=== PATIENT | female | born 1960 | race Caucasian/White ===

== ENCOUNTER 2019-01-22 20:21 | Inpatient (IN) ==
[2019-01-22] MEDS ORDERED: SODIUM CHLORIDE 0.9% 1,000 ML IV STA (20:47)
[2019-01-22] MEDS ORDERED: PANTOPRAZOLE 40 MG VIAL IV STA (20:47)
[2019-01-22] MEDS ORDERED: ONDANSETRON 4 MG/2 ML VIAL IV STA (20:47)
[2019-01-22 21:22] LABS: Basophils % 0.2 % (0.0-0.8); Eosinophils % 0.1 % (0.00-10.9); Hemoglobin 14.4 GM/DL (12.0-16.0); Immature Granulocytes % 0.8 %; Lymphocytes # 1.1 10*3/uL (1.4-4.0); Lymphocytes % 8.7 % (21.3-54.2); Mean Corpuscular HGB Conc 31.3 GM/DL (32-36); Mean Corpuscular Volume 86.6 FL (87-102); Mean Platelet Volume 11.2 FL (9.6-12.0); Monocytes % 9.4 % (1.7-12.7); Neutrophils % 80.8 % (38.7-73.9); Platelet Count 277 T/CUMM (130-400); Red Blood Count 5.31 MC/CUMM (3.8-5.5); Red Cell Distribution Width 16.8 % (9.3-17.3); White Blood Count 12.3 T/CUMM (4-12)
[2019-01-22 21:37] LABS: Albumin 3.8 G/DL (3.4-5.0); Bilirubin,Total 0.9 MG/DL (0.2-1.0); Calcium 9.8 MG/DL (8.5-10.1); Osmolality,Calculated 288.4 MOS/KG (273-304); Total Protein 7.2 G/DL (6.4-8.3)
[2019-01-22] MEDS ORDERED: PROMETHAZINE INJ 12.5 MG in SODIUM CHLORIDE 0.9% 50 ML IV STA (22:23)
[2019-01-22] MEDS ORDERED: PROMETHAZINE 25 MG/1 ML VIAL ONE (22:44)
[2019-01-22] MEDS ORDERED: MORPHINE 4 MG/1 ML VIAL IV STA (22:57)
[2019-01-22] MEDS ORDERED: PIPERACILLIN/TAZOBACTAM 3.375 MG in SODIUM CHLORIDE 0.9% 100 ML IV STA (22:57)
[2019-01-22] MEDS ORDERED: PIPERACILLIN/TAZOBACTAM 3,375 MG in SODIUM CHLORIDE 0.9% 100 ML IV STA (22:58)
[2019-01-22] MEDS ORDERED: PROMETHAZINE 25 MG/1 ML VIAL IM PRN (23:08)
[2019-01-22] MEDS ORDERED: MORPHINE 4 MG/1 ML VIAL IV PRN (23:08)
[2019-01-22] MEDS ORDERED: ONDANSETRON 4 MG/2 ML VIAL IV PRN (23:08)
[2019-01-22 23:26] LABS: Apearance,Urine CLEAR (Clear); Bilirubin,Urine Negative (Negative); Blood, Urine Negative (Negative); Glucose,Urine (UA) 50 mg/dL (Negative); Hyaline Casts,Urine 12 /LPF (0-3); Ketones,Urine 80 mg/dL (Negative); Mucus,Urine Occasional /LPF (Occasional); Nitrite,Urine Negative (Negative); Protein,Urine Negative; RBC,Urine 1 /HPF (0-4); Squamous Epithelial Cell,Urine Occasional /HPF (0-10); Urine Color Yellow (Yellow); Urine Specific Gravity 1.035 (1.001-1.035); Urine Urobilinogen < 2.0 EU/DL (0.2-1.0); WBC,Urine <1 /HPF (0-6)
[2019-01-23 00:57] LABS: Basophils % 0.2 % (0.0-0.8); Hematocrit 36.8 VOL% (35.7-47.0); Immature Granulocytes % 1.5 %; Immature Granulocytes Absolute 0.15 #; Lymphocytes # 0.5 10*3/uL (1.4-4.0); Lymphocytes % 5.4 % (21.3-54.2); Mean Corpuscular HGB Conc 32.6 GM/DL (32-36); Mean Platelet Volume 11.2 FL (9.6-12.0); Monocytes % 8.7 % (1.7-12.7); Neutrophils % 84.2 % (38.7-73.9); Platelet Count 202 T/CUMM (130-400); Red Blood Count 4.33 MC/CUMM (3.8-5.5); Red Cell Distribution Width 16.4 % (9.3-17.3)
[2019-01-23 01:10] LABS: Bilirubin,Total 0.8 MG/DL (0.2-1.0); Calcium 8.1 MG/DL (8.5-10.1); Osmolality,Calculated 288.1 MOS/KG (273-304); Total Protein 5.8 G/DL (6.4-8.3)
[2019-01-23] MEDS: DEXTROSE 5% NACL 0.45% 1,000 ML IV SCH ×3 (01:13→15:12)
[2019-01-23 01:20] LABS: Anisocytosis 1+; Band Neutrophils 5 % (0-10); Lymphocytes 15 % (20-55); Segmented Neutrophils 78 % (50-85); Total Cells Counted 100
[2019-01-23 01:21] LABS: Platelet Estimate Adequate
[2019-01-23] MEDS ORDERED: DOCUSATE SODIUM 100 MG CAPSULE PO SCH (09:00)
[2019-01-23] MEDS: PIPERACILLIN/TAZOBACTAM 3,375 MG in SODIUM CHLORIDE 0.9% 100 ML IV SCH ×2 (09:34→16:32)
[2019-01-23] MEDS: PANTOPRAZOLE 40 MG VIAL IV SCH (09:36)
[2019-01-24] MEDS: PIPERACILLIN/TAZOBACTAM 3,375 MG in SODIUM CHLORIDE 0.9% 100 ML IV SCH ×3 (00:46→17:51)
[2019-01-24] MEDS: DEXTROSE 5% NACL 0.45% 1,000 ML IV SCH ×2 (00:47→17:51)
[2019-01-24] MEDS: PANTOPRAZOLE 40 MG VIAL IV SCH (08:30)
[2019-01-25] MEDS: PIPERACILLIN/TAZOBACTAM 3,375 MG in SODIUM CHLORIDE 0.9% 100 ML IV SCH ×3 (03:54→17:28)
[2019-01-25] MEDS: DEXTROSE 5% NACL 0.45% 1,000 ML IV SCH ×6 (03:55→23:33)
[2019-01-25 04:52] LABS: Basophils % 0.6 % (0.0-0.8); Eosinophils % 0.8 % (0.00-10.9); Hematocrit 33.6 VOL% (35.7-47.0); Hemoglobin 10.6 GM/DL (12.0-16.0); Immature Granulocytes % 0.2 %; Immature Granulocytes Absolute 0.01 #; Lymphocytes # 1.6 10*3/uL (1.4-4.0); Lymphocytes % 30.6 % (21.3-54.2); Mean Corpuscular HGB Conc 31.5 GM/DL (32-36); Mean Corpuscular Volume 87.5 FL (87-102); Mean Platelet Volume 10.4 FL (9.6-12.0); Monocytes % 13.8 % (1.7-12.7); Platelet Count 188 T/CUMM (130-400); Red Blood Count 3.84 MC/CUMM (3.8-5.5); Red Cell Distribution Width 16.5 % (9.3-17.3); White Blood Count 5.2 T/CUMM (4-12)
[2019-01-25 05:20] LABS: Albumin 2.5 G/DL (3.4-5.0); Bilirubin,Total 0.6 MG/DL (0.2-1.0); Calcium 8.5 MG/DL (8.5-10.1); Osmolality,Calculated 293.3 MOS/KG (273-304); Total Protein 4.9 G/DL (6.4-8.3)
[2019-01-25] MEDS: PANTOPRAZOLE 40 MG VIAL IV SCH (09:19)
[2019-01-25] MEDS ORDERED: PHENYLEPHRINE DRIP 20 MG/250 ML PREMIX IV ONE (10:30)
[2019-01-25] MEDS ORDERED: HEPARIN/NACL 0.9% 2 UNITS/ML 500 ML IV ONE (10:30)
[2019-01-25] MEDS ORDERED: OCTREOTIDE 500 MCG/ML VIAL SUBCUT ONE (11:00)
[2019-01-25] MEDS ORDERED: OCTREOTIDE 500 MCG/ML VIAL IV ONE (11:00)
[2019-01-25] MEDS ORDERED: BUPIVACAINE 0.5% 50 ML VIAL ONE (11:43)
[2019-01-25] MEDS ORDERED: EPINEPHrine 1 MG/ML VIAL ONE (11:43)
[2019-01-25] MEDS ORDERED: DEXAMETHASONE 4 MG/1 ML VIAL ONE (11:43)
[2019-01-25] MEDS ORDERED: LIDOCAINE 1% 5 ML VIAL ONE (11:44)
[2019-01-25] MEDS ORDERED: SODIUM CHLORIDE 0.9% 1,000 ML IV PRN ×2 (13:54→14:54)
[2019-01-25] MEDS ORDERED: ALBUMIN 5% 12.5 GM/250 ML VIAL IV ONE (14:06)
[2019-01-25] MEDS ORDERED: SUGAMMADEX 200 MG/2 ML VIAL IV ONE (14:28)
[2019-01-25] MEDS ORDERED: ONDANSETRON 4 MG/2 ML VIAL IV PRN ×2 (14:39→15:14)
[2019-01-25 14:58] LABS: Apearance,Urine CLEAR (Clear); Bilirubin,Urine Negative (Negative); Blood, Urine Negative (Negative); Glucose,Urine (UA) >=500 mg/dL (Negative); Ketones,Urine 5 mg/dL (Negative); Nitrite,Urine Negative (Negative); Protein,Urine Negative; RBC,Urine 1 /HPF (0-4); Urine Color Colorless (Yellow); Urine Specific Gravity 1.003 (1.001-1.035); Urine Urobilinogen < 2.0 EU/DL (0.2-1.0); WBC,Urine <1 /HPF (0-6)
[2019-01-25] MEDS ORDERED: PROPOFOL 200 MG/20 ML VIAL IV ONE (15:00)
[2019-01-25] MEDS ORDERED: ONDANSETRON 4 MG/2 ML VIAL ONE (15:01)
[2019-01-25] MEDS ORDERED: DESFLURANE 1 UNIT/15 MINUTE INH ONE (15:01)
[2019-01-25] MEDS ORDERED: MIDAZOLAM 2 MG/2 ML VIAL ONE (15:01)
[2019-01-25] MEDS ORDERED: fentaNYL 100 MCG/2 ML VIAL ONE (15:01)
[2019-01-25] MEDS ORDERED: PHENYLEPHRINE 1 MG/10 ML SYRINGE IV ONE (15:02)
[2019-01-25] MEDS ORDERED: LACTATED RINGERS 1,000 ML IV ONE (15:02)
[2019-01-25] MEDS ORDERED: ROCURONIUM 100 MG/10 ML VIAL IV ONE (15:02)
[2019-01-25] MEDS ORDERED: SUCCINYLCHOLINE 200 MG/10 ML VIAL ONE (15:02)
[2019-01-25] MEDS: HYDROmorphone 2 MG/1 ML VIAL IV PRN ×3 (15:08→17:28)
[2019-01-25] MEDS ORDERED: HYDROmorphone 2 MG/1 ML VIAL ONE (15:09)
[2019-01-25 17:27] LABS: Hematocrit 28.6 VOL% (35.7-47.0)
[2019-01-25] MEDS ORDERED: SODIUM CHLORIDE 0.9% 1,000 ML IV ONE (18:45)
[2019-01-25] MEDS ORDERED: OCTREOTIDE 100 MCG/ML SYRINGE IV ONE (18:46)
[2019-01-25] MEDS: OCTREOTIDE 500 MCG in SODIUM CHLORIDE 0.9% 100 ML IV SCH ×2 (20:33→23:29)
[2019-01-26] MEDS: OCTREOTIDE 500 MCG in SODIUM CHLORIDE 0.9% 100 ML IV SCH ×7 (01:35→17:28)
[2019-01-26] MEDS: PIPERACILLIN/TAZOBACTAM 3,375 MG in SODIUM CHLORIDE 0.9% 100 ML IV SCH ×3 (01:35→16:53)
[2019-01-26] MEDS: HYDROmorphone 2 MG/1 ML VIAL IV PRN ×6 (03:54→20:14)
[2019-01-26 04:54] LABS: Basophils % 0.2 % (0.0-0.8); Hematocrit 23.6 VOL% (35.7-47.0); Immature Granulocytes Absolute 0.13 #; Lymphocytes # 0.9 10*3/uL (1.4-4.0); Lymphocytes % 7.1 % (21.3-54.2); Mean Corpuscular HGB Conc 31.4 GM/DL (32-36); Mean Corpuscular Volume 88.1 FL (87-102); Mean Platelet Volume 10.4 FL (9.6-12.0); Monocytes % 10.7 % (1.7-12.7); Red Cell Distribution Width 17.3 % (9.3-17.3)
[2019-01-26 04:56] LABS: Hemoglobin 7.4 GM/DL (12.0-16.0); Platelet Count 138 T/CUMM (130-400); Red Blood Count 2.68 MC/CUMM (3.8-5.5); White Blood Count 12.6 T/CUMM (4-12)
[2019-01-26 05:07] LABS: Albumin 2.5 G/DL (3.4-5.0); Band Neutrophils 8 % (0-10); Bilirubin,Total 0.5 MG/DL (0.2-1.0); Calcium 7.1 MG/DL (8.5-10.1); Hypochromasia 1+; Lymphocytes 6 % (20-55); Osmolality,Calculated 291.7 MOS/KG (273-304); Ovalocytes Slight; Segmented Neutrophils 78 % (50-85); Total Cells Counted 100; Total Protein 4.1 G/DL (6.4-8.3)
[2019-01-26 05:08] LABS: Platelet Estimate Normal
[2019-01-26] MEDS ORDERED: SODIUM CHLORIDE 0.9% 1,000 ML IV PRN (07:08)
[2019-01-26] MEDS: SODIUM CHLORIDE 0.9% 1,000 ML IV SCH ×2 (08:19→16:20)
[2019-01-26] MEDS: DEXTROSE 5% NACL 0.45% 1,000 ML IV SCH (08:48)
[2019-01-26] MEDS: PANTOPRAZOLE 40 MG VIAL IV SCH (09:01)
[2019-01-26 14:23] LABS: Hematocrit 32.3 VOL% (35.7-47.0)
[2019-01-26 14:24] LABS: Hemoglobin 10.6 GM/DL (12.0-16.0)
[2019-01-27] MEDS: HYDROmorphone 2 MG/1 ML VIAL IV PRN ×2 (02:50→08:48)
[2019-01-27] MEDS: SODIUM CHLORIDE 0.9% 1,000 ML IV SCH ×3 (02:53→18:56)
[2019-01-27] MEDS: PIPERACILLIN/TAZOBACTAM 3,375 MG in SODIUM CHLORIDE 0.9% 100 ML IV SCH ×3 (03:45→20:50)
[2019-01-27 08:04] LABS: Basophils % 0.1 % (0.0-0.8); Hematocrit 31.6 VOL% (35.7-47.0); Hemoglobin 10.5 GM/DL (12.0-16.0); Immature Granulocytes % 0.5 %; Immature Granulocytes Absolute 0.07 #; Lymphocytes % 7.2 % (21.3-54.2); Mean Corpuscular HGB Conc 33.2 GM/DL (32-36); Mean Corpuscular Volume 86.6 FL (87-102); Mean Platelet Volume 10.9 FL (9.6-12.0); Monocytes % 9.6 % (1.7-12.7); Neutrophils % 82.6 % (38.7-73.9); Platelet Count 102 T/CUMM (130-400); Red Blood Count 3.65 MC/CUMM (3.8-5.5); Red Cell Distribution Width 16.9 % (9.3-17.3); White Blood Count 13.3 T/CUMM (4-12)
[2019-01-27] MEDS: PANTOPRAZOLE 40 MG VIAL IV SCH (08:43)
[2019-01-28] MEDS: SODIUM CHLORIDE 0.9% 1,000 ML IV SCH ×5 (01:40→20:19)
[2019-01-28] MEDS: PIPERACILLIN/TAZOBACTAM 3,375 MG in SODIUM CHLORIDE 0.9% 100 ML IV SCH ×3 (04:15→20:20)
[2019-01-28 06:48] LABS: Basophils % 0.3 % (0.0-0.8); Hematocrit 30.6 VOL% (35.7-47.0); Hemoglobin 9.9 GM/DL (12.0-16.0); Immature Granulocytes % 1.5 %; Immature Granulocytes Absolute 0.21 #; Lymphocytes # 0.9 10*3/uL (1.4-4.0); Lymphocytes % 6.2 % (21.3-54.2); Mean Corpuscular HGB Conc 32.4 GM/DL (32-36); Mean Corpuscular Volume 86.9 FL (87-102); Mean Platelet Volume 10.3 FL (9.6-12.0); Monocytes % 10.5 % (1.7-12.7); Neutrophils % 81.5 % (38.7-73.9); Platelet Count 125 T/CUMM (130-400); Red Blood Count 3.52 MC/CUMM (3.8-5.5); Red Cell Distribution Width 16.8 % (9.3-17.3); White Blood Count 14.4 T/CUMM (4-12)
[2019-01-28 07:19] LABS: Albumin 2.3 G/DL (3.4-5.0); Calcium 8.1 MG/DL (8.5-10.1); Osmolality,Calculated 278.1 MOS/KG (273-304); Total Protein 4.8 G/DL (6.4-8.3)
[2019-01-28] MEDS: PANTOPRAZOLE 40 MG VIAL IV SCH (09:30)
[2019-01-28] MEDS: POTASSIUM CHLORIDE RIDER 10 MEQ in PREMIX 1 EACH IV PRN ×5 (09:36→18:16)
[2019-01-29] MEDS: POTASSIUM CHLORIDE RIDER 10 MEQ in PREMIX 1 EACH IV PRN (00:39)
[2019-01-29] MEDS: SODIUM CHLORIDE 0.9% 1,000 ML IV SCH ×3 (04:02→18:03)
[2019-01-29] MEDS: PIPERACILLIN/TAZOBACTAM 3,375 MG in SODIUM CHLORIDE 0.9% 100 ML IV SCH ×3 (04:33→20:03)
[2019-01-29 05:33] LABS: Basophils % 0.2 % (0.0-0.8); Eosinophils # 0.1 10*3/uL (0.0-0.87); Eosinophils % 0.5 % (0.00-10.9); Hematocrit 28.4 VOL% (35.7-47.0); Hemoglobin 9.5 GM/DL (12.0-16.0); Immature Granulocytes % 1.6 %; Immature Granulocytes Absolute 0.17 #; Lymphocytes # 0.9 10*3/uL (1.4-4.0); Lymphocytes % 8.4 % (21.3-54.2); Mean Corpuscular HGB Conc 33.5 GM/DL (32-36); Mean Corpuscular Volume 86.1 FL (87-102); Mean Platelet Volume 11.3 FL (9.6-12.0); Monocytes % 11.3 % (1.7-12.7); Platelet Count 151 T/CUMM (130-400); Red Cell Distribution Width 16.8 % (9.3-17.3); White Blood Count 10.3 T/CUMM (4-12)
[2019-01-29 06:05] LABS: Albumin 2.2 G/DL (3.4-5.0); Bilirubin,Total 1.3 MG/DL (0.2-1.0); Calcium 7.9 MG/DL (8.5-10.1); Osmolality,Calculated 281.8 MOS/KG (273-304); Total Protein 4.9 G/DL (6.4-8.3)
[2019-01-29] MEDS: PANTOPRAZOLE 40 MG VIAL IV SCH (09:58)
[2019-01-29] MEDS: ACETAMINOPHEN 325 MG TABLET PO PRN (16:30)
[2019-01-30] MEDS: PIPERACILLIN/TAZOBACTAM 3,375 MG in SODIUM CHLORIDE 0.9% 100 ML IV SCH ×3 (04:01→21:35)
[2019-01-30] MEDS: SODIUM CHLORIDE 0.9% 1,000 ML IV SCH ×3 (04:02→21:05)
[2019-01-30] MEDS: PANTOPRAZOLE 40 MG VIAL IV SCH (09:53)
[2019-01-30] MEDS: ACETAMINOPHEN 325 MG TABLET PO PRN (12:49)
[2019-01-30 17:04] LABS: Apearance,Urine CLEAR (Clear); Bacteria,Urine Occasional /HPF (Few); Bilirubin,Urine Negative (Negative); Blood, Urine Negative (Negative); Glucose,Urine (UA) Negative (Negative); Ketones,Urine 5 mg/dL (Negative); Mucus,Urine Occasional /LPF (Occasional); Nitrite,Urine Negative (Negative); Protein,Urine Negative; RBC,Urine 2 /HPF (0-4); Squamous Epithelial Cell,Urine Occasional /HPF (0-10); Urine Color Straw (Yellow); Urine Specific Gravity 1.009 (1.001-1.035); Urine Urobilinogen < 2.0 EU/DL (0.2-1.0); WBC,Urine <1 /HPF (0-6)
[2019-01-31] MEDS: PANTOPRAZOLE 40 MG VIAL IV SCH (09:31)
[2019-01-31 10:17] LABS: Basophils # 0.1 10*3/uL (0.0-0.2); Basophils % 0.7 % (0.0-0.8); Eosinophils # 0.1 10*3/uL (0.0-0.87); Hematocrit 33.6 VOL% (35.7-47.0); Hemoglobin 11.3 GM/DL (12.0-16.0); Immature Granulocytes % 1.7 %; Immature Granulocytes Absolute 0.12 #; Lymphocytes # 1.1 10*3/uL (1.4-4.0); Lymphocytes % 15.4 % (21.3-54.2); Mean Corpuscular HGB Conc 33.6 GM/DL (32-36); Mean Corpuscular Volume 85.7 FL (87-102); Mean Platelet Volume 10.4 FL (9.6-12.0); Neutrophils % 68.2 % (38.7-73.9); Platelet Count 259 T/CUMM (130-400); Red Blood Count 3.92 MC/CUMM (3.8-5.5); Red Cell Distribution Width 16.5 % (9.3-17.3); White Blood Count 7.1 T/CUMM (4-12)
[2019-01-31 10:31] LABS: Calcium 8.3 MG/DL (8.5-10.1)
[2019-01-31 11:31] VITALS: BP 119/67
== END 2019-01-31 15:29 | disposition home or self-care (01) | DRG 330 ==
LOC: N.ED 20:21 → N.EDINP 23:07 → N.3E 23:27 → N.ICU 01-25 16:58 → N.3E 01-26 19:57
PROVIDERS: ADMIT Family Medicine; ATTEND Family Medicine

== ENCOUNTER 2019-04-18 07:42 | Observation (INO) ==
[2019-04-18] MEDS ORDERED: SODIUM CHLORIDE 0.9% 1,000 ML IV STA (08:08)
[2019-04-18 08:45] LABS: Basophils % 0.7 % (0.0-0.8); Eosinophils # 0.1 10*3/uL (0.0-0.87); Eosinophils % 1.7 % (0.00-10.9); Hematocrit 38.2 VOL% (35.7-47.0); Hemoglobin 12.3 GM/DL (12.0-16.0); Immature Granulocytes % 0.7 %; Immature Granulocytes Absolute 0.03 #; Lymphocytes # 1.2 10*3/uL (1.4-4.0); Mean Corpuscular HGB Conc 32.2 GM/DL (32-36); Mean Corpuscular Volume 90.5 FL (87-102); Mean Platelet Volume 11.6 FL (9.6-12.0); Monocytes % 9.1 % (1.7-12.7); Neutrophils % 62.8 % (38.7-73.9); Platelet Count 185 T/CUMM (130-400); Red Blood Count 4.22 MC/CUMM (3.8-5.5); Red Cell Distribution Width 17.3 % (9.3-17.3); White Blood Count 4.6 T/CUMM (4-12)
[2019-04-18 08:57] LABS: INR 1.1; PT Patient Result 12.3 SECS (9.6-12.2); Partial Thromboplastin Time 23.8 SECS (20.8-36.0)
[2019-04-18 09:08] LABS: Albumin 2.6 G/DL (3.4-5.0); Bilirubin,Total 0.7 MG/DL (0.2-1.0); Calcium 8.6 MG/DL (8.5-10.1); Risk Ratio 1.93; Total Protein 5.7 G/DL (6.4-8.3)
[2019-04-18] MEDS ORDERED: ACETAMINOPHEN 325 MG TABLET PO PRN (10:41)
[2019-04-18] MEDS ORDERED: ONDANSETRON 4 MG/2 ML VIAL IV PRN (10:41)
[2019-04-18] MEDS: SODIUM CHLORIDE 0.9% 1,000 ML IV SCH ×2 (11:44→23:28)
[2019-04-18 14:31] LABS: Folate 8.1 NG/ML (5.4-24.0)
[2019-04-18 15:33] LABS: Apearance,Urine CLEAR (Clear); Bilirubin,Urine Negative (Negative); Blood, Urine Negative (Negative); Glucose,Urine (UA) Negative (Negative); Hyaline Casts,Urine 14 /LPF (0-3); Ketones,Urine Negative (Negative); Mucus,Urine Occasional /LPF (Occasional); Nitrite,Urine Negative (Negative); Protein,Urine Negative; RBC,Urine 1 /HPF (0-4); Squamous Epithelial Cell,Urine Occasional /HPF (0-10); Urine Color Yellow (Yellow); Urine Specific Gravity 1.006 (1.001-1.035); Urine Urobilinogen < 2.0 EU/DL (0.2-1.0); WBC,Urine 3 /HPF (0-6)
[2019-04-18] MEDS: MAGNESIUM SULF RIDER 2 GM in PREMIX 1 EACH IV PRN ×2 (18:56→23:28)
[2019-04-18] MEDS ORDERED: DOCUSATE SODIUM 100 MG CAPSULE PO SCH (21:00)
[2019-04-19] MEDS: SODIUM CHLORIDE 0.9% 1,000 ML IV SCH ×2 (08:27→12:03)
[2019-04-19] MEDS ORDERED: PANTOPRAZOLE 40 MG TABLET PO SCH (09:00)
[2019-04-19 11:40] VITALS: BP 96/55
== END 2019-04-19 13:25 | disposition home or self-care (01) ==
LOC: N.ED 07:42 → N.EDINP 07:42 → N.4E 09:31
PROVIDERS: ADMIT Family Medicine; ATTEND Family Medicine